=== PATIENT | male | born 1965 | race Caucasian/White ===

== ENCOUNTER → 2019-04-22 10:05 | Outpatient (BNVA) | payer MEDICARE, MEDICAID, SELFPAY | PROVIDERS: PCP Family Medicine; Visit Provider Family Medicine | DX: M10.9 Gout, unspecified (principal); E78.2 Mixed hyperlipidemia; I10 Essential (primary) hypertension | CPT/HCPCS: 80053; 80061; 84550; 85025 ==

== ENCOUNTER → 2019-10-21 12:11 | Outpatient (BNVA) | payer MEDICARE, MEDICAID, SELFPAY | PROVIDERS: PCP Family Medicine; Visit Provider Family Medicine | DX: E78.2 Mixed hyperlipidemia (principal); I10 Essential (primary) hypertension; M10.9 Gout, unspecified; Z86.711 Personal history of pulmonary embolism | CPT/HCPCS: 80053; 80061; 85025 ==

== ENCOUNTER → 2020-04-20 11:20 | Outpatient (BNVA) | payer MEDICARE, MEDICAID, SELFPAY | PROVIDERS: PCP Family Medicine; Visit Provider Family Medicine | DX: I10 Essential (primary) hypertension (principal); E87.5 Hyperkalemia; E78.2 Mixed hyperlipidemia; M1A.09X0 Idiopathic chronic gout, multiple sites, without tophus (tophi); Z68.34 Body mass index [BMI] 34.0-34.9, adult | CPT/HCPCS: 80053; 80061; 84443; 84550; 84560; 85025 ==

== ENCOUNTER → 2020-07-29 12:22 | Outpatient (BNVA) | payer MEDICARE, MEDICAID, SELFPAY | PROVIDERS: PCP Family Medicine; Visit Provider Family Medicine | DX: E78.2 Mixed hyperlipidemia (principal); I10 Essential (primary) hypertension; M1A.09X0 Idiopathic chronic gout, multiple sites, without tophus (tophi); Z86.711 Personal history of pulmonary embolism; Z68.34 Body mass index [BMI] 34.0-34.9, adult | CPT/HCPCS: 80053; 80061; 84443; 84550; 85025 ==

== ENCOUNTER → 2020-10-28 00:01 | Outpatient (BNVA) | payer MEDICARE, MEDICAID, SELFPAY | PROVIDERS: PCP Family Medicine; Visit Provider Family Medicine | DX: I10 Essential (primary) hypertension (principal); M1A.09X0 Idiopathic chronic gout, multiple sites, without tophus (tophi); E78.2 Mixed hyperlipidemia; Z86.711 Personal history of pulmonary embolism | CPT/HCPCS: 80053; 80061; 84443; 84550; 85025 ==

== ENCOUNTER → 2021-07-22 10:21 | Outpatient (BNVA) | payer MEDICARE, MEDICAID, SELFPAY | PROVIDERS: PCP Family Medicine; Visit Provider Family Medicine | DX: E78.2 Mixed hyperlipidemia (principal); I10 Essential (primary) hypertension; Z12.5 Encounter for screening for malignant neoplasm of prostate; M1A.09X0 Idiopathic chronic gout, multiple sites, without tophus (tophi); Z86.711 Personal history of pulmonary embolism | CPT/HCPCS: 80053; 80061; 84550; 85025; G0103 ==

== ENCOUNTER 2021-08-24 09:49 | Emergency (ER) | payer MEDICARE, MEDICAID, SELFPAY ==
[2021-08-24 10:22] VITALS: BP 152/83; PULSE 57; RESP 15; TEMP 36.6; O2SAT 98; BMI 34.0
[2021-08-24 11:08] LABS: Basophils % 0.2 %; Eosinophils % 0.4 %; Hematocrit 47.8 % (42.0-52.0); Hemoglobin 16.1 g/dL (11.7-16.6); Lymphocytes # 0.9 10^3/uL (0.8-4.8); Lymphocytes % 8.8 %; Mean Corpuscular HGB Conc 33.7 g/dL (30.0-36.0); Mean Corpuscular Hemoglobin 30.3 pg (28.0-34.0); Mean Corpuscular Volume 89.8 fl (80-94); Mean Platelet Volume 12.2 fL (7.4-10.4); Monocytes # 0.7 10^3/uL (0.2-0.9); Monocytes % 6.5 %; Neutrophils % 83.5 %; Nucleated Red Blood Cells % 0 %; Platelet Count 190 10^3/cmm (130-400); Red Blood Count 5.32 10^6/uL (4.1-5.3); Red Cell Distribution Width 13.3 % (12.1-15.1); White Blood Count 10.5 10^3/uL (4.0-10.0)
--- NOTE | 2021-08-24 11:25 | W.ED.ABDPA2 ---
HPI - Abdominal Pain General: Chief Complaint: Abdominal Pain Stated Complaint: abd pain Time Seen by Provider: 08/24/21 09:52 Source: patient Mode of arrival: ambulatory Limitations: no limitations History of Present Illness: Patient is a 55-year-old male who presents to ED today with complaint of left lower abdominal pain that began at roughly 2 AM this morning after he awoke from sleep. Patient states the pain was initially very sharp. It has improved greatly upon his arrival to the ED. He states he has had a history of kidney stones that have felt similar previously. He has noticed darker than normal urine but he does not complain of any dysuria or trouble starting a stream. He is not having any flank pain. He is having normal bowel movements. No nausea or vomiting. No fevers. MD elicited complaint: abdominal pain Onset (ago): hour(s) Pain Consistency: constant Location: LLQ Severity: mild Quality: sharp and other (improved upon arrival to ED) Migration to: no migration Exacerbating factors: nothing Relieving factors: nothing Associated Symptoms: Reports no associated symptoms; Denies change in bowel habits, chills, constipation, diarrhea, dysuria, fever(s), nausea and vomiting Review of Systems Const: Denies: fever(s), chills, body aches, fatigue or malaise Card: Denies: chest pain Resp: Denies: dyspnea GI: Reports: abdominal pain; Denies: nausea, vomiting, diarrhea, constipation or change in bowel habits : Reports: other (dark urine); Denies: flank pain, difficulty urinating, dysuria, urinary hesitancy, difficulty starting urination, change in urine stream or urinary incontinence Musc: Denies: neck pain, back pain, extremity pain or joint pain Skin/Breast: Denies: rash Neuro: Denies: headache(s), numbness in extremities, weakness in extremities, sensory changes or dizziness PFSH ED PFSH: Medical History Anticoagulated Arthritis of right glenohumeral joint Encounter for counseling for care management of patient with chronic conditions and complex health needs using nurse-based model Essential (primary) hypertension Gout, unspecified Hx pulmonary embolism Hyperkalemia Mixed hyperlipidemia Surgical History Hx of lymph node biopsy Family History Family/Other CAD (coronary artery disease) Diabetes Social History Smoking and tobacco status: never smoked Alcohol intake: unknown Current occupational status: disabled Current gender identity: Male Physical Exam Const: COMMON NORMALS: no acute distress, patient oriented x3, no limitations and alert GENERAL APPEARANCE: cooperative ORIENTATION/CONSCIOUSNESS: Yes awake, Yes oriented to person, Yes oriented to place and Yes oriented to time Resp: COMMON NORMALS: normal respiratory effort and clear to auscultation bilaterally AUSCULTATION: clear to auscultation bilaterally Cardio: COMMON NORMALS: regular rate and regular rhythm RATE: regular rate RHYTHM: regular rhythm GI: COMMON NORMALS: Normal to inspection, nondistended, normoactive bowel sounds present, Soft to palpation, No hepatosplenomegaly present and no masses INSPECTION: Yes normal to inspection AUSCULTATION: Yes normoactive bowel sounds PALPATION: Yes Soft to palpation, Yes Tenderness to palpation present (GI) (L lower abdomen), No Guarding due to palpation present (GI), No Rigid due to palpation and Yes No hepatosplenomegaly present : COMMON NORMALS: Yes no CVA tenderness BLADDER/KIDNEY EXAM: Yes no CVA tenderness Back/Pelvis: COMMON NORMALS: no CVA tenderness, thoracic and lumbar spine normal to inspection, no thoracic nor lumbar tenderness and thoraco-lumbar ROM normal Extremity: COMMON NORMALS: normal to inspection GENERAL: Yes normal exam except as noted Neuro: ZANDRA COMA SCALE: document GCS findings [place] coma scale eye opening: Spontaneous [place] coma scale verbal response: Orientated Zandra coma scale motor response: Obey commands [place] coma scale total score: 15 COMMON NORMALS: patient oriented x3, moves all extremities, no focal motor deficits and no sensory deficits noted SENSORIUM/ORIENTATION: Yes alert, Yes oriented to person, Yes oriented to place and Yes oriented to time Skin: COMMON NORMALS: no rashes or lesions noted GENERAL SKIN EXAM: no rashes or lesions noted Course Vital Signs: Vital signs: Vital Signs Temperature 98.1 F 08/24/21 13:16 Pulse Rate 62 08/24/21 13:16 Respiratory Rate 16 08/24/21 13:16 Blood Pressure 141/82 08/24/21 13:16 Pulse Oximetry 98 08/24/21 13:16 [facility] - Abdominal Pain Medical Decision Making Patient's vital signs are normal. His pain had improved upon arrival to the ED. Essentially is a 55-year-old male who woke up with left-sided abdominal pains-fairly acute onset that felt similar to previous kidney and ureter stones. His blood work is unremarkable. He does have hematuria and a CT imaging obtained and does show a 4 mm left ureter calculus. He has additional bilateral numerous nonobstructing renal calculi. Radiologist commented on left inguinal hernia. Patient is not having any pain to his inguinal region and there is no mass or bulge noted here. He is having normal bowel movements and passing flatulence. Clinically his left ureter stone fits his symptomology and will be treated with flomax, pain/nausea meds, urine strainer, and follow-up with urology. Return to ED precautions given regarding the stone as well as precautions regarding inguinal hernias. Lab Data : 08/24/21 11:00 08/24/21 11:00 Labs/Radiology: Radiology Impressions Abdomen/Pelvis CT 08/24/21 11:35 IMPRESSION: 1. Mild LEFT hydroureteronephrosis secondary to 4 mm calcification in the proximal LEFT ureter. 2. Additional bilateral numerous nonobstructing renal calcifications. 3. Normal appendix. 4. Distal colon diverticulosis without acute diverticulitis. 5. Bilateral patent inguinal canals contain fat. There is also a loop of distal colon extending into the proximal LEFT patent inguinal canal. No incarceration at this time. Laboratory Results WBC 10.5 10^3/uL (4.0-10.0) H 08/24/21 11:00 RBC 5.32 10^6/uL (4.1-5.3) H 08/24/21 11:00 Hgb 16.1 g/dL (11.7-16.6) 08/24/21 11:00 Hct 47.8 % (42.0-52.0) 08/24/21 11:00 MCV 89.8 fl (80-94) 08/24/21 11:00 MCH 30.3 pg (28.0-34.0) 08/24/21 11:00 MCHC 33.7 g/dL (30.0-36.0) 08/24/21 11:00 RDW 13.3 % (12.1-15.1) 08/24/21 11:00 Plt Count 190 10^3/cmm (130-400) 08/24/21 11:00 MPV 12.2 fL (7.4-10.4) H 08/24/21 11:00 Neut % (Auto) 83.5 % 08/24/21 11:00 Lymph % (Auto) 8.8 % 08/24/21 11:00 [place] % (Auto) 6.5 % 08/24/21 11:00 Eos % (Auto) 0.4 % 08/24/21 11:00 Baso % (Auto) 0.2 % 08/24/21 11:00 Neut # (Auto) 8.80 10^3/uL (1.8-7.7) H 08/24/21 11:00 Lymph # (Auto) 0.9 10^3/uL (0.8-4.8) 08/24/21 11:00 [place] # (Auto) 0.7 10^3/uL (0.2-0.9) 08/24/21 11:00 Eos # (Auto) 0.0 10^3/uL (0.0-0.8) 08/24/21 11:00 Baso # (Auto) 0.0 10^3/uL (0.0-0.1) 08/24/21 11:00 Nucleated RBC % (auto) 0 % 08/24/21 11:00 Nucleated RBCs # 0.0 /100WBC 08/24/21 11:00 Sodium 139 mmol/L (136-145) 08/24/21 11:00 Potassium 5.1 mmol/L (3.5-5.1) 08/24/21 11:00 Chloride 102 mmol/L (98-107) 08/24/21 11:00 Carbon Dioxide 26 mmol/L (22-29) 08/24/21 11:00 Anion Gap 16.1 (5-19) 08/24/21 11:00 BUN 18 mg/dL (6-20) 08/24/21 11:00 Creatinine 1.0 mg/dL (0.7-1.2) 08/24/21 11:00 GFR Calculation 77.0 mL/min (90-130) L 08/24/21 11:00 Glucose 138 mg/dL (65-115) H 08/24/21 11:00 Calculated Osmolality 292 mOsm/kg (285-295) 08/24/21 11:00 Calcium 9.5 mg/dL (8.5-10.5) 08/24/21 11:00 Total Bilirubin 0.3 mg/dL (0.15-1.2) 08/24/21 11:00 AST 30 U/L (0-40) 08/24/21 11:00 ALT 36 U/L (0-41) 08/24/21 11:00 Alkaline Phosphatase 47 IU/L (40-130) 08/24/21 11:00 Total Protein 7.1 g/dL (6.6-8.7) 08/24/21 11:00 Albumin 4.4 g/dL (3.5-5.2) 08/24/21 11:00 Globulin 2.7 g/dL (1.3-4.6) 08/24/21 11:00 Lipase 27 U/L (13-60) 08/24/21 11:00 Urine Color Yellow (Yellow) 08/24/21 11:04 Urine Appearance Clear (CLEAR) 08/24/21 11:04 Urine pH 5 (5-7) 08/24/21 11:04 Ur Specific [place] 1.025 (1.005-1.030) 08/24/21 11:04 Urine Protein Neg (Negative) 08/24/21 11:04 Urine Glucose (UA) Norm (Normal) 08/24/21 11:04 Urine Ketones Negative (Negative) 08/24/21 11:04 Urine Blood 3+ (Negative) H 08/24/21 11:04 Urine Nitrate Negative (Negative) 08/24/21 11:04 Urine Bilirubin Neg (Negative) 08/24/21 11:04 Urine Urobilinogen Norm mg/dL (Negative) 08/24/21 11:04 Ur Leukocyte Esterase Negative (Negative) 08/24/21 11:04 Urine RBC Too numerous to cnt /hpf (0-2) H 08/24/21 11:04 Urine WBC 0-4 /hpf (0-5) H 08/24/21 11:04 Ur Squamous Epith Cells 0-4 /hpf (0-5) H 08/24/21 11:04 Amorphous Sediment Not Reportable 08/24/21 11:04 Urine Bacteria None /hpf (NONE) 08/24/21 11:04 Discharge Plan Discharge Patient Disposition: Home Clinical Impression: Left ureteral stone Condition: Stable Prescriptions: New hydrocodone-acetaminophen 5-325 mg tablet 1 tab PO Q6H PRN (Reason: pain) Qty: 14 0RF Flomax 0.4 mg capsule 0.4 mg PO DAILY Qty: 10 0RF ondansetron 4 mg tablet,disintegrating 4 mg PO Q8H PRN (Reason: nausea and vomiting) Qty: 14 0RF No Action acetaminophen [Tylenol] 325 mg tablet 325 mg PO QID PRN (Reason: Pain) 0RF atorvastatin 20 mg tablet 20 mg PO DAILY Qty: 90 1RF metoprolol tartrate 50 mg tablet 50 mg PO DAILY 0RF allopurinol 300 mg tablet 300 mg PO DAILY 0RF Eliquis 5 mg tablet 5 mg PO BID 0RF Garlique 400 mg Tablet,Delayed Release (Dr/Ec) 400 mg PO DAILY 0RF Discharge Orders: Discharge ED (Routine); Ordered 08/24/21 Ordered By: Jeanie Dacosta Referrals: Harsh Arambula MD [Physician] - Yolanda Honeycutt MD [Primary Care Provider] - Patient Instructions: Ureteral Stones (ED) Activity Restrictions/Additional Instructions: As we discussed case management should contact you shortly to set you up with your follow-up urology appointment. Push fluids (water) as much as possible. You may use the pain and nausea meds as needed. As we discussed strain your urine and bring any stones with you to your follow-up appointment. You may return to the emergency department for worsening or uncontrollable pain, repetitive episodes of vomiting, fevers, inability to urinate, or any other concerns you may have. I hope you begin to feel better soon. Coding Level of Care Code ED Edge Grinder Machine for Usha Fwd Exam Comprehensive
[2021-08-24 11:26] LABS: Alanine Aminotransferase 36 U/L (0-41); Albumin Level 4.4 g/dL (3.5-5.2); Alkaline Phosphatase 47 IU/L (40-130); Blood Urea Nitrogen 18 mg/dL (6-20); Calcium 9.5 mg/dL (8.5-10.5); Carbon Dioxide 26 mmol/L (22-29); Chloride 102 mmol/L (98-107); Globulin 2.7 g/dL (1.3-4.6); Glucose 138 mg/dL (65-115); Lipase 27 U/L (13-60); Osmolality Calculated 292 mOsm/kg (285-295); Sodium 139 mmol/L (136-145); Total Bilirubin 0.3 mg/dL (0.15-1.2); Total Protein 7.1 g/dL (6.6-8.7)
[2021-08-24 11:30] LABS: Anion Gap 16.1 (5-19); Aspartate Amino Transferase 30 U/L (0-40); Potassium 5.1 mmol/L (3.5-5.1)
[2021-08-24 11:30] LABS: Add Urine Microscopic? YES; Bilirubin Urine Neg (Negative); Blood Urine 3+ (Negative); Glucose Urine UA Norm (Normal); Ketones Urine Negative (Negative); Leukocyte Esterase Urine Negative (Negative); Nitrate Urine Negative (Negative); Protein Urine Neg (Negative); RBC Urine TOO NUMEROUS TO CNT /hpf (0-2); Specific Gravity, Urine 1.025 (1.005-1.030); Urine Appearance Clear (CLEAR); Urine Color Yellow (Yellow); Urobilinogen Urine Norm (Negative); pH Urine 5 (5-7)
[2021-08-24 11:31] LABS: Add Urine Culture? Yes; Squamous Epithelial Cell Urine 0-4 /hpf (0-5); WBC Urine 0-4 /hpf (0-5)
--- NOTE | 2021-08-24 11:35 | CT_ITS ---
WS: [id number] CT ABDOMEN AND PELVIS NONCONTRAST HISTORY: LLQ pain; hematuria TECHNIQUE: Imaging performed through the abdomen and pelvis. Coronal and sagittal reformats are submi tted. All CT scans at [facility] use at least one of these dose optimization techniques: auto mated exposure control; mA and/or kV adjustment per patient size (includes targeted exams where dose is matched to clinical indication); or iterative reconstruction. DLP: 1883.5 mGy.cm COMPARISON: None available. Lower thorax: Benign granuloma RIGHT middle lobe. Heart size is normal. Small hiatal hernia. Liver: Hepatic granuloma. Mild variable density within the liver but no mass. No bile duct dilatation . Gallbladder: Normal gallbladder. Pancreas: Normal size and attenuation. Normal pancreatic duct. No pancreatitis or mass. Spleen: Normal. Adrenal glands: Normal. No mass. Right kidney: Normal size kidney. Numerous nonobstructing calcifications in the renal pelvis ranging from 3 mm to 11 mm. No perinephric stranding. No ureteral calcification. Left kidney: Normal size kidney with mild perinephric stranding. There are several nonobstructing layo cifications in the renal pelvis ranging from 2 mm to 8 mm. Mild hydronephrosis and proximal hydrouret er secondary to 4 mm calcification at the L3 level. The ureter distal to this calcification is also m ildly inflamed but no additional calcifications are identified. Aorta: Minimal atherosclerosis aorta. No free fluid, intraperitoneal air or significant lymphadenopathy. GI tract: Normal appendix. Normally distended stomach. No small bowel obstruction. Mild diffuse const ipation throughout the colon. Numerous diverticula in the distal colon. No obstructive pattern. There is a loop of colon extending within the patent LEFT inguinal canal. This loop of descending colon is at the very orifice of the inguinal canal. No obstruction at this time. RIGHT inguinal canal is wade nt containing fat only. Abdominal wall: Negative. No hernia. Pelvis: No free fluid or adenopathy. Well-distended urinary bladder. Osseous structures: Facet joint arthritis in the lower lumbar spine. Sclerotic focus LEFT ilium is pr obably a bone island measuring 5.[address]/CT kidney stone [id number] IMPRESSION: 1. Mild LEFT hydroureteronephrosis secondary to 4 mm calcification in the prox imal LEFT ureter. 2. Additional bilateral numerous nonobstructing renal calcifications. 3. Normal appendix. 4. Distal colon diverticulosis without acute diverticulitis. 5. Bilateral patent inguinal canals contain fat. There is also a loop of dista l colon extending into the proximal LEFT patent inguinal canal. No incarceratio n at this time.
--- NOTE | 2021-08-24 12:09 | PC.PHAR ---
PT STATES HE TALKED TO HIS DOCTOR AND HIS DR SAID HE COULD TAKE GARLIQUE INSTEAD OF FENOFIBRATE.
[2021-08-24 13:16] VITALS: BP 141/82; PULSE 62; RESP 16; TEMP 36.7; O2SAT 98
--- NOTE | 2021-09-02 16:44 | DCPLANNER ---
regional safety manager had message to schedule a follow up appointment for patient with urology. Message was sent to the front office staff at urology, patients information was sent to the front office staff at urology. A follow up appointment was scheduled for 08.26.[address] Arambula. Patient did attend appointment.
== END 2021-08-24 13:21 | disposition home or self-care (01) ==
PROVIDERS: Emergency Provider Physician Assistant; PCP Family Medicine
DX: N20.1 Calculus of ureter (principal); Z79.01 Long term (current) use of anticoagulants; I10 Essential (primary) hypertension; E78.2 Mixed hyperlipidemia; Z86.711 Personal history of pulmonary embolism
CPT/HCPCS: 74176; 80053; 81001; 83690; 85025; 87086; 99283

== ENCOUNTER 2021-08-26 07:56 | Outpatient (CLI) | payer MEDICARE, MEDICAID, SELFPAY ==
--- NOTE | 2021-08-26 08:04 | XR_ITS ---
WS: [id number] XR KUB [id number] REASON FOR EXAM: stone FINDINGS: Multiple intrarenal calculi bilaterally congruent with the CT scan of 08/24/2021. Calculus adjacent to the left transverse process of L3 congruent with the finding of a proximal left ureteral calculus on the CT scan of 08/24/2021. No other significant abdominal findings are noted. XR/XR KUB [id number] IMPRESSION: Urinary tract calculi as above congruent with the previous CT scan.
== END 2021-08-26 07:57 | disposition home or self-care (01) ==
PROVIDERS: PCP Family Medicine; Visit Provider Urology
DX: N20.1 Calculus of ureter (principal); N20.0 Calculus of kidney
CPT/HCPCS: 74018; 81003; 99203

== ENCOUNTER 2021-09-09 08:59 | Outpatient (CLI) | payer MEDICARE, MEDICAID, SELFPAY ==
--- NOTE | 2021-09-09 09:45 | XR_ITS ---
WS: [id number] KUB, AP view, 09/09/2021 Clinical Data: BILATERAL RENAL STONES Comparison: KUB, 08/26/2021 Findings: No abnormal intraabdominal masses are seen. There is no dilatated small bowel or evidence of obstruct ion. There are calcifications overlying both kidneys. Bowel gas obscures detail over both kidneys. XR/XR KUB [id number] Impression: Bilateral renal calculi.
== END 2021-09-09 09:00 | disposition home or self-care (01) ==
PROVIDERS: PCP Family Medicine; Visit Provider Urology
DX: N20.2 Calculus of kidney with calculus of ureter (principal)
CPT/HCPCS: 74018; 81003; 99213

== ENCOUNTER → 2021-10-08 07:39 | Outpatient (BNVA) | payer MEDICARE, MEDICAID, SELFPAY | PROVIDERS: PCP Family Medicine; Visit Provider Urology | DX: N20.1 Calculus of ureter (principal); N20.0 Calculus of kidney | CPT/HCPCS: 74018; 81003; 99213 ==

== ENCOUNTER 2021-10-22 08:19 | Outpatient (CLI) | payer MEDICARE, MEDICAID, SELFPAY ==
--- NOTE | 2021-10-22 08:30 | XR_ITS ---
WS: [id number] KUB, AP view, 10/22/2021 Clinical Data: STONES Comparison: KUB, 10/08/2021 Findings: No abnormal intraabdominal masses are seen. There is no dilatated small bowel or evidence of obstruct ion. There are bilateral calcifications overlying both kidneys unchanged. There are phleboliths in the magaly e pelvis. There is a moderate amount of fecal material in the ascending and transverse colon. XR/XR KUB [id number] Impression: No change in bilateral renal calculi.
== END 2021-10-22 08:20 | disposition home or self-care (01) ==
LOC: RAD 08:23
PROVIDERS: PCP Family Medicine; Visit Provider Urology
DX: N20.0 Calculus of kidney (principal)
CPT/HCPCS: 74018; 81003; 99213

== ENCOUNTER 2022-01-13 06:53 | Outpatient (CLI) | payer MEDICARE, MEDICAID, SELFPAY ==
--- NOTE | 2022-01-13 08:00 | US_ITS ---
WS: [id number] ULTRASOUND SOFT TISSUES LEFT inguinal canal. HISTORY: K40.90 - Unilateral inguinal hernia, without obstruction ... COMPARISON: CT 08/24/2021 TECHNIQUE: 2-D and color Doppler imaging is submitted. Peristalsing loops of GI tract extends along the LEFT inguinal canal to abut the superior LEFT testic le. Normal peristalsis. No ischemic changes are identified. Hernia was also identified on the prior C T of 08/16/2021 but the extent of the GI tract extending along the inguinal canal has increased. There is no edema identified. US/US soft tissue/extremity [id number] IMPRESSION: 1. LEFT inguinal canal hernia containing peristalsing loop of GI tract. No isc hemic changes at this time.
== END 2022-01-13 06:54 | disposition home or self-care (01) ==
LOC: RAD 06:54
PROVIDERS: PCP Family Medicine; Visit Provider Family Medicine
DX: K40.90 Unilateral inguinal hernia, without obstruction or gangrene, not specified as recurrent (principal)
CPT/HCPCS: 76882

== ENCOUNTER → 2022-08-29 15:17 | Outpatient (BNVA) | payer MEDICARE, MEDICAID, SELFPAY | PROVIDERS: PCP Family Medicine; Visit Provider Family Medicine | DX: E78.2 Mixed hyperlipidemia (principal); I10 Essential (primary) hypertension; M10.9 Gout, unspecified; M1A.09X0 Idiopathic chronic gout, multiple sites, without tophus (tophi); G56.02 Carpal tunnel syndrome, left upper limb | CPT/HCPCS: 80053; 80061; 84443; 84550; 85025 ==

== ENCOUNTER → 2023-07-04 17:26 | Outpatient (BNVA) | payer MEDICARE, MEDICAID, SELFPAY | PROVIDERS: PCP Family Medicine; Visit Provider Family Medicine | DX: I10 Essential (primary) hypertension (principal); E78.2 Mixed hyperlipidemia; M1A.09X0 Idiopathic chronic gout, multiple sites, without tophus (tophi); G56.02 Carpal tunnel syndrome, left upper limb | CPT/HCPCS: 80053; 80061; 84443; 84550; 85025 ==

== ENCOUNTER → 2024-01-29 11:41 | Outpatient (BNVA) | payer MEDICARE, MEDICAID, SELFPAY | PROVIDERS: PCP Nurse Practitioner Family; Visit Provider Nurse Practitioner Family | DX: R13.10 Dysphagia, unspecified (principal); I10 Essential (primary) hypertension; Z12.5 Encounter for screening for malignant neoplasm of prostate | CPT/HCPCS: 80053; 80061; 84443; 84550; 85025; G0103 ==

== ENCOUNTER → 2024-02-26 08:05 | Outpatient (BNVA) | payer MEDICARE, MEDICAID, SELFPAY | PROVIDERS: PCP Nurse Practitioner Family; Visit Provider Surgery | DX: R13.10 Dysphagia, unspecified (principal); R03.0 Elevated blood-pressure reading, without diagnosis of hypertension; K21.9 Gastro-esophageal reflux disease without esophagitis; R10.13 Epigastric pain | CPT/HCPCS: 99204 ==

== ENCOUNTER 2024-03-15 08:31 | Outpatient (CLI) | payer MEDICARE, MEDICAID, SELFPAY ==
--- NOTE | 2024-03-15 09:15 | US_ITS ---
WS: [id number] RIGHT UPPER QUADRANT ULTRASOUND HISTORY: epigastric pain COMPARISON: None available. Liver: 16.8 cm in length. Coarse diffuse echotexture throughout the liver. No intrahepatic duct dilat ation. Portal Vein: Normal hepatopetal flow with monophasic waveform. Gallbladder: Nonshadowing and nonmobile focus in the gallbladder lumen measures 6 mm. This is probabl y a hyperplastic gallbladder polyp. No wall thickening or pericholecystic fluid. Additional increased echogenicity in the neck of the gallbladder is poorly visualized. Potentially this could represent s ludge or stone versus artifact. CBD: 0.4 cm Pancreas: Normal size and echogenicity. Right kidney: 9.8 cm in length. Normal size and echogenicity. No hydronephrosis or mass. Aorta and IVC: Unremarkable abdominal aorta and IVC. No ascites. US/US gall bladder [id number] IMPRESSION: 1. Technically limited RIGHT upper quadrant evaluation. 2. Hyperplastic gallbladder polyp measures 6 mm. There may be additional stone s or sludge in the neck of the gallbladder which is poorly visualized. This may be also artifact and related to body habitus. If gallbladder is not surgically removed consider follow-up in 3 months by ultrasound to better evaluate the ne ck of the gallbladder.
== END 2024-03-15 08:32 | disposition home or self-care (01) ==
LOC: RAD 08:32
PROVIDERS: PCP Nurse Practitioner Family; Visit Provider Surgery
DX: R10.13 Epigastric pain (principal); R93.2 Abnormal findings on diagnostic imaging of liver and biliary tract; R93.3 Abnormal findings on diagnostic imaging of other parts of digestive tract
CPT/HCPCS: 76705

== ENCOUNTER → 2024-03-20 09:30 | Day surgery (SDC) | payer MEDICARE, MEDICAID, SELFPAY ==
--- NOTE | 2024-03-20 10:00 | NM_ITS ---
WS: [id number] NUCLEAR MEDICINE HIDA SCAN WITH GALLBLADDER EJECTION FRACTION HISTORY: epigastric pain COMPARISON: Gallbladder ultrasound 03/15/2024 TECHNIQUE: The patient was intravenously injected with 8.2 mCi of TC99m Mebrofenin. Immediate imaging over the right upper quadrant was followed by 5 minute image and additional images for a total of 60 minutes. Normal uptake of radiotracer throughout the liver. Activity identified in the gallbladder at 15 minutes and well distended by 60 minutes. Activity in the proximal small bowel was seen by 20 minutes. Good washout of the radiotracer from the liver by 60 minutes. The patient then drank 8 ounces of Ensure Plus. Ejection fraction at 60 minutes was 47%. Normal GB ej ection fraction is 35-75%. Post fatty meal symptoms: None. NM/NM hepatobiliary w phar* [id number] IMPRESSION: 1. Normal HIDA scan. 2. Normal gallbladder ejection fraction.
== END ==
LOC: RAD 09:30
PROVIDERS: PCP Nurse Practitioner Family; Visit Provider Surgery
DX: R10.13 Epigastric pain (principal)
CPT/HCPCS: 78227; A9537

== ENCOUNTER → 2024-03-22 08:42 | Outpatient (BNVA) | payer MEDICARE, MEDICAID, SELFPAY | PROVIDERS: PCP Nurse Practitioner Family; Visit Provider Student in an Organized Health Care Education/Training Program | DX: R03.0 Elevated blood-pressure reading, without diagnosis of hypertension (principal); R12 Heartburn | CPT/HCPCS: 99204 ==

== ENCOUNTER 2024-04-15 09:15 | Day surgery (SDC) | payer MEDICARE, MEDICAID, SELFPAY ==
--- NOTE | 2024-04-14 12:35 | ANES.PREANE2 ---
Pre-Anesthetic Assessment Height/Weight: Height 5 ft 8 in Preop Diagnosis: GERD Operation Date: 04/15/24 10:45 Proposed Procedures p EGD [id number], R12(Not Applicable) - Bora Coombs MD Was Beta Dariana taken within 24 hours: Yes Was Clonidine taken within 24 hours: N/A Social No alcohol and No tobacco Exam alert, oriented x 3, clear to auscultation bilaterally and regular rate & rhythm Airway Submandibular: within normal limits Cervical ROM: within normal limits Mallampati: Class III Dentition: full Anesthetic Plan ASA status: 3 Anesthesia: MAC Other: No prior issues with anesthesia NPO since yesterday evening History of hypertension on amlodipine and metoprolol GERD on Protonix Patient has a history of PE, on chronic Eliquis. Last taken 04/11/2024 Labs from January reviewed acceptable for procedure Plan for MAC anesthetic Medications/Allergies Home Medications ?Medication ?Instructions ?Recorded ?Confirmed ?Last Taken ?Type acetaminophen 325 mg tablet 325 mg PO QID PRN Pain 04/20/20 04/11/24 03/18/24 History (Tylenol) garlic 400 mg tablet,delayed 400 mg PO DAILY 08/24/21 04/11/24 04/11/24 History release amlodipine 5 mg tablet 5 mg PO DAILY #90 tabs 01/29/24 04/11/24 04/11/24 Rx apixaban 5 mg tablet (Eliquis) 5 mg PO BID #180 tabs 01/29/24 04/11/24 04/11/24 Rx pantoprazole 40 mg tablet,delayed 40 mg PO BID 6 weeks #84 tabs 02/26/24 04/11/24 04/11/24 Rx release (Protonix) ezetimibe 10 mg tablet (Zetia) 10 mg PO DAILY #90 tabs 03/01/24 04/11/24 03/18/24 Rx allopurinol 200 mg tablet 200 mg PO DAILY 03/18/24 04/11/24 04/10/24 History metoprolol tartrate 50 mg tablet 50 mg PO BID 03/18/24 04/11/24 04/15/24 07:00 History Allergies Allergy/AdvReac Type Severity Reaction Status Date / Time No Known Allergies Allergy Verified 04/15/24 09:42 [facility] Anesthesia Medical History Left ureteral calculus Bilateral renal stones Mixed hyperlipidemia Essential (primary) hypertension Hyperkalemia Arthritis of right glenohumeral joint Gout, unspecified Hx pulmonary embolism Anticoagulated Encounter for counseling for care management of patient with chronic conditions and complex health needs using nurse-based model Surgical History Hx of lymph node biopsy Family History Family/Other CAD (coronary artery disease) Diabetes Mother Healthy adult Father Healthy adult Social History Smoking and tobacco/nicotine status: never used tobacco/nicotine Alcohol intake: never Substance/Drug Use: never Household members: family Marital status: Single Current occupational status: disabled Current gender identity: Male Data Anesthesia Cardiac Studies: No Data to Display
[2024-04-15 09:51] VITALS: BP 165/92; PULSE 54; RESP 18; TEMP 36.4; O2SAT 95; BMI 38.0
--- NOTE | 2024-04-15 10:01 | W.PM.OPSUD ---
Surgery/Procedure H&P Update DATE OF PROCEDURE: April 15, 2024 DATE H&P PERFORMED: 03/22/24 H&P UPDATE INFORMATION: I have reviewed H&P completed within last 30 days, I have examined patient prior to procedure and No changes to prior documentation PLANNED PROCEDURE: Operation Date: 04/15/24 10:45 Proposed Procedures p EGD [id number], R12(Not Applicable) - Bora Coombs MD
[2024-04-15 12:51] VITALS: BP 103/67; PULSE 60; RESP 16; TEMP 36.4; O2SAT 95
[2024-04-15 13:09] VITALS: BP 140/73; PULSE 56; RESP 18; O2SAT 100
[2024-04-15] MEDS: sodium chloride 0.9% 500 ML 15 ML IV (13:15)
== END 2024-04-15 13:15 | disposition home or self-care (01) ==
PROVIDERS: PCP Nurse Practitioner Family; Visit Provider Student in an Organized Health Care Education/Training Program
PROC: 0DJ08ZZ Inspection of Upper Intestinal Tract, Via Natural or Artificial Opening Endoscopic (ICD-10-PCS; principal; 2024-04-15 10:45)
DX: K21.9 Gastro-esophageal reflux disease without esophagitis (principal); Z79.899 Other long term (current) drug therapy; Z79.01 Long term (current) use of anticoagulants; I10 Essential (primary) hypertension; Z86.711 Personal history of pulmonary embolism; E78.2 Mixed hyperlipidemia; M10.9 Gout, unspecified
CPT/HCPCS: 43239; 88305; J2704; J7040

== ENCOUNTER 2024-05-04 07:14 | Emergency (ER) | payer MEDICARE, MEDICAID, SELFPAY ==
[2024-05-04] VITALS (11 sets, daily range): BP systolic 122–159; BP diastolic 72–89; PULSE 55–67; RESP 9–17; TEMP 36.6; O2SAT 93–98; BMI 38.0
--- NOTE | 2024-05-04 07:19 | ECG_ITS ---
[facility] Date: 2024-05-04 Pat Name: Emmy Correia Department: Room: Gender: Male Business Sales Consultant: : 1965 Requested By: Michael Covington Order Number: [id number] Kian MD: Silvano Peña M.D. Measurements Intervals [place] Rate: 64 P: 50 [place]: 162 QRS: 36 QRSD: 106 T: 61 QT: 388 QTc: 402 Interpretive Statements SINUS RHYTHM No previous ECG available for comparison Electronically Signed On 05-04-2024 17:58:24 INVAS TECH by Silvano Peña M.D. [email or web address] [id number]
--- NOTE | 2024-05-04 07:23 | XRR_ITS ---
PROCEDURE INFORMATION: Exam: XR Chest Exam date and time: 05/04/2024 7:30 AM Age: 58 years old Clinical indication: Cough and dyspnea; Additional info: Dyspnea/cough TECHNIQUE: Imaging protocol: Radiologic exam of the chest. Views: 1 view. Total images: 1 COMPARISON: CR XR KUB [id number] 10/22/2021 8:31 AM FINDINGS: Lungs: Unremarkable. No consolidation. Pleural spaces: Unremarkable. No pleural effusion. No pneumothorax. Heart/Mediastinum: Unremarkable. No cardiomegaly. Bones/joints: Unremarkable. XR/XR chest 1V portable [id number] IMPRESSION: No acute findings.
[2024-05-04 07:51] LABS: Basophils % 0.5 %; Eosinophils # 0.6 10^3/uL (0.0-0.8); Eosinophils % 7.7 %; Hematocrit 50.5 % (37-53); Lymphocytes # 1.4 10^3/uL (0.8-4.8); Lymphocytes % 18.9 %; Mean Corpuscular HGB Conc 33.3 g/dL (30-55); Mean Corpuscular Hemoglobin 29.7 pg (27-33); Mean Corpuscular Volume 89.4 fl (82-101); Monocytes # 0.8 10^3/uL (0.2-0.9); Monocytes % 10.4 %; Neutrophils % 62.1 %; Nucleated Red Blood Cells % 0 %; Platelet Count 223 10^3/cmm (157-399); Red Blood Count 5.65 10^6/uL (3.85-5.65); Red Cell Distribution Width 12.7 % (12.1-15.1); White Blood Count 7.57 10^3/uL (3.29-11.43)
--- NOTE | 2024-05-04 08:03 | ED_ITS ---
HPI - Chest Pain 2 General: Chief Complaint: Chest Pain Stated Complaint: chest pain Time Seen by Provider: 05/04/24 07:25 History of Present Illness: 58-year-old male who [place] [facility] [place] with complaints of chest and abdominal pain. This been ongoing for quite some time for him he has had extensive outpatient workup including EGD gallbladder ultrasound and HIDA scan all of which have been negative. He has a history of PEs he is on apixaban he has been taking that regularly he is not having any shortness of breath now. Pain is worse when he laughs or coughs send the lower chest upper epigastric area. He has no known history of coronary artery disease he is on pantoprazole 40 mg twice daily. In addition to this he is on antihypertensive he states he has been taking all of his medications. He has noticed that he gets bad heartburn and states that last night he had pretty significant heartburn that seems to improved a little bit this morning he denies any medic easy melena hematemesis coffee-ground emesis. Recent EGD did not show any ulcerations. He is able to swallow liquids without difficulty at the time he is seen there is no evidence of esophageal obstruction. Associated symptoms: Deny abdominal pain, dyspnea or fever(s) Related Data Home Medications ?Medication ?Instructions ?Recorded ?Confirmed acetaminophen 325 mg tablet 325 mg PO QID PRN Pain 05/04/24 (Tylenol) metoprolol tartrate 50 mg tablet 50 mg PO BID 03/18/24 05/04/24 allopurinol 300 mg tablet 300 mg PO DAILY 05/04/2410/21 colchicine 0.6 mg tablet 0.6 mg PO DAILY PRN gout 10/2105/04/24 garlic 400 mg tablet 400 mg PO DAILY 05/04/2410/21 Previous Rx's ?Medication ?Instructions ?Recorded amlodipine 5 mg tablet 5 mg PO DAILY #90 tabs 01/28 apixaban 5 mg tablet (Eliquis) 5 mg PO BID #180 tabs 1 03/31/23 Held on 04/15/24. Instructions: Resume on 04/16/24. pantoprazole 40 mg tablet,delayed 40 mg PO BID 6 weeks #84 tabs 02/26/24 release (Protonix) ezetimibe 10 mg tablet (Zetia) 10 mg PO DAILY #90 tabs 03/01/24 aspirin 81 mg tablet,delayed 81 mg PO DAILY #30 tabs 0 05/04/24 release Allergies Allergy/AdvReac Type Severity Reaction Status Date / Time No Known Allergies Allergy Verified 04/15/24 09:42 Review of Systems 2 Const: Denies: fever(s) or chills Card: Denies: chest pain Resp: Denies: dyspnea GI: Denies: abdominal pain : Denies: dysuria, urinary frequency or urinary urgency Musc: Denies: neck pain or back pain Skin/Breast: Denies: rash PFSH ED 2 PFSH: Medical History Left ureteral calculus Bilateral renal stones Mixed hyperlipidemia Essential (primary) hypertension Hyperkalemia Arthritis of right glenohumeral joint Gout, unspecified Hx pulmonary embolism Anticoagulated Encounter for counseling for care management of patient with chronic conditions and complex health needs using nurse-based model Surgical History Hx of lymph node biopsy Family History Family/Other CAD (coronary artery disease) Diabetes Mother Healthy adult Father Healthy adult Social History Smoking and tobacco/nicotine status: never used tobacco/nicotine Alcohol intake: never Substance/Drug Use: never Household members: family Marital status: Single Current occupational status: disabled Current gender identity: Male Physical Exam 2 Const: COMMON NORMALS: no acute distress GENERAL APPEARANCE: cooperative and comfortable ORIENTATION/CONSCIOUSNESS: Yes awake, Yes oriented to person, Yes oriented to place and Yes oriented to time HENMT: COMMON NORMALS: normocephalic, atraumatic and hearing grossly normal bilaterally HEAD & SCALP: normocephalic and atraumatic Resp: COMMON NORMALS: normal respiratory effort, No retractions, No use of accessory muscles and clear to auscultation bilaterally AUSCULTATION: clear to auscultation bilaterally Cardio: COMMON NORMALS: regular rate, regular rhythm and No murmurs present (Cardio) RATE: regular rate RHYTHM: regular rhythm GI: COMMON NORMALS: Soft to palpation and No hepatosplenomegaly present A USCULTATION: Yes normoactive bowel sounds PALPATION: Yes Soft to palpation, No Tenderness to palpation present (GI), No Guarding due to palpation present (GI) and Yes No hepatosplenomegaly present Extremity: COMMON NORMALS: normal to inspection, capillary refill normal, no clubbing, cyanosis or edema, no calf tenderness and no pedal edema Neuro: SENSORIUM/ORIENTATION: Yes oriented to person, Yes oriented to place and Yes oriented to time Skin: COMMON NORMALS: no rashes or lesions noted GENERAL SKIN EXAM: no rashes or lesions noted Course 2 Vital Signs: Vital signs: Vital Signs Temperature 97.8 F 05/04/24 07:22 Pulse Rate 59 L 05/04/24 10:33 Respiratory Rate 10 L 05/04/24 10:00 Blood Pressure 146/83 05/04/24 10:33 Pulse Oximetry 97 05/04/24 10:33 Oxygen Delivery Me thod Room Air 05/04/24 07:22 MDM - Chest Pain Medical Decision Making EKG and cardiac enzymes negative. I suspect some of this is GI related he is already on pantoprazole 40 mg twice a day continue this follow-up with his primary care doctor will set him up for an outpatient Catia and sestamibi stress test return if he has further problems. He has already had further workup for the symptoms than what we are generally able to provide in the ER including the HIDA scan and endoscopy. Medical Records I reviewed the patient's medical records. Lab Data I reviewed the patient's lab results. 05/04/24 07:38 05/04/24 07:38 Radiology Impressions Chest X-Ray 05/04/24 07:23 IMPRESSION: No acute findings. Laboratory Results WBC 7.57 10^3/uL (3.29-11.43) 05/04/24 07:38 RBC 5.65 10^6/uL (3.85-5.65) 05/04/24 07:38 Hgb 16.80 g/dL (11.27-16.99) 05/04/24 07:38 Hct 50.5 % (37-53) 05/04/24 07:38 MCV 89.4 fl (82-101) 05/04/24 07:38 MCH 29.7 pg (27-33) 05/04/24 07:38 MCHC 33.3 g/dL (30-55) 05/04/24 07:38 RDW 12.7 % (12.1-15.1) 05/04/24 07:38 Plt Count 223 10^3/cmm (157-399) 05/04/24 07:38 MPV 12.0 fL (7.4-10.4) H 05/04/24 07:38 Neut % (Auto) 62.1 % 05/04/24 07:38 Lymph % (Auto) 18.9 % 05/04/24 07:38 [place] % (Auto) 10.4 % 05/04/24 07:38 Eos % (Auto) 7.7 % 05/04/24 07:38 Baso % (Auto) 0.5 % 05/04/24 07:38 Neut # (Auto) 4.70 10^3/uL (1.8-7.7) 05/04/24 07:38 Lymph # (Auto) 1.4 10^3/uL (0.8-4.8) 05/04/24 07:38 [place] # (Auto) 0.8 10^3/uL (0.2-0.9) 05/04/24 07:38 Eos # (Auto) 0.6 10^3/uL (0.0-0.8) 05/04/24 07:38 Baso # (Auto) 0.0 10^3/uL (0.0-0.1) 05/04/24 07:38 Nucleated RBC % (auto) 0 % 05/04/24 07:38 Nucleated RBCs # 0.0 /100WBC 05/04/24 07:38 D-Dimer 0.41 ug/mLFEU (0-0.59) 05/04/24 07:38 Sodium 140 mmol/L (136-145) 05/04/24 07:38 Potassium 4.8 mmol/L (3.5-5.1) 05/04/24 07:38 Chloride 100 mmol/L (98-107) 05/04/24 07:38 Carbon Dioxide 26 mmol/L (22-29) 05/04/24 07:38 Anion Gap 18.8 (5-19) 05/04/24 07:38 BUN 16 mg/dL (8-23) 05/04/24 07:38 Creatinine 1.3 mg/dL (0.7-1.2) H 05/04/24 07:38 GFR Calculation 56.3 mL/min (90-130) L 05/04/24 07:38 Glucose 95 mg/dL (65-115) 05/04/24 07:38 Calculated Osmolality 291 mOsm/kg (285-295) 05/04/24 07:38 Calcium 10.4 mg/dL (8.5-10.5) 05/04/24 07:38 Total Bilirubin 0.5 mg/dL (0.15-1.2) 05/04/24 07:38 AST 28 U/L (0-40) 05/04/24 07:38 ALT 50 U/L (0-41) H 05/04/24 07:38 Alkaline Phosphatase 61 U/L (40-130) 05/04/24 07:38 Troponin T Baseline < 6 ng/L (0-15) 05/04/24 07:38 Troponin T 120 Minute 6.00 ng/L (0-15) 05/04/24 09:30 Delta Troponin T 0.64445 ABS# (0-10) 05/04/24 09:30 Total Protein 7.4 g/dL (6.6-8.7) 05/04/24 07:38 Albumin 4.8 g/dL (3.5-5.2) 05/04/24 07:38 Globulin 2.6 g/dL (1.3-4.6) 05/04/24 07:38 Lipase 31 U/L (13-60) 05/04/24 07:38 All radiology interpretation(s) finalized by discharge Discharge Plan Discharge Patient Disposition: Home Clinical Impression: Atypical chest pain, GERD (gastroesophageal reflux disease), Abdominal pain Condition: Stable Prescriptions: New aspirin 81 mg tablet,delayed release (DR/EC) 81 mg PO DAILY Qty: 30 0RF No Action acetaminophen [Tylenol] 325 mg tablet 325 mg PO QID PRN (Reason: Pain) Eliquis 5 mg tablet 5 mg PO BID Qty: 180 1RF amlodipine 5 mg tablet 5 mg PO DAILY Qty: 90 1RF pantoprazole [Protonix] 40 mg tablet,delayed release (DR/EC) 40 mg PO BID 42 Days Qty: 84 1RF ezetimibe [Zetia] 10 mg tablet 10 mg PO DAILY Qty: 90 0RF metoprolol tartrate 50 mg tablet 50 mg PO BID allopurinol 300 mg tablet 300 mg PO DAILY colchicine 0.6 mg Tablet 0.6 mg PO DAILY PRN (Reason: gout) garlic 400 mg Tablet 400 mg PO DAILY Discharge Orders: Discharge ED (Routine); Ordered 05/04/24 Ordered By: Michael Sepulveda Referrals: Francoise Shelby FNP [Primary Care Provider] - Discharge Diet: Usual diet Discharge Activity: Resume usual activity Patient Instructions: Abdominal Pain (ED), Opioid Safety, Pain Management Activity Restrictions/Additional Instructions: Thank you for choosing [facility] for your healthcare needs today. It is very important that you follow up as instructed or that you return to the Emergency Department should you have concerns or if your condition changes or worsens in any way. You were seen in the emergency room with complaint of chest and abdominal discomfort that she has had for over a month. We reviewed the previous workup you had as an outpatient repeated some lab work and also did EKGs and cardiac enzymes. There is no sign of acute coronary syndrome pneumonia or pneumothorax no sign of acute intra-abdominal pathology. Do recommend that you take a baby aspirin daily continue your other medications and follow-up with your primary care doctor within the week. Case management make arrangements for you to have an outpatient stress test. Print Language: Jordanian Coding Level of Care Code ED Swamper for Usha Mitchell
[2024-05-04] MEDS: aspirin 81 mg Chew Tablet 324 MG PO (08:08)
[2024-05-04 08:22] LABS: Alanine Aminotransferase 50 U/L (0-41); Albumin Level 4.8 g/dL (3.5-5.2); Alkaline Phosphatase 61 U/L (40-130); Anion Gap 18.8 (5-19); Aspartate Amino Transferase 28 U/L (0-40); Blood Urea Nitrogen 16 mg/dL (8-23); Calcium 10.4 mg/dL (8.5-10.5); Carbon Dioxide 26 mmol/L (22-29); Chloride 100 mmol/L (98-107); Globulin 2.6 g/dL (1.3-4.6); Glomerular Filtration Rate 56.3 mL/min (90-130); Glucose 95 mg/dL (65-115); Osmolality Calculated 291 mOsm/kg (285-295); Potassium 4.8 mmol/L (3.5-5.1); Sodium 140 mmol/L (136-145); Total Bilirubin 0.5 mg/dL (0.15-1.2); Total Protein 7.4 g/dL (6.6-8.7)
[2024-05-04 08:23] LABS: Creatinine Clr Calc Pharmacy 73.8455; Troponin(5th) Baseline < 6 ng/L (0-15)
--- NOTE | 2024-05-04 08:26 | PC.PHAR ---
Pt states he is out of AirXpandersix and would like to have more. Pt also states takes colchicine 0.6mg prn-unable to find an order.
[2024-05-04 08:29] LABS: Lipase 31 U/L (13-60)
[2024-05-04 09:01] LABS: D Dimer 0.41 ug/mLFEU (0-0.59)
--- NOTE | 2024-05-04 09:36 | ECG_ITS ---
[facility] Pat Name: Emmy Correia Department: Room: Gender: Male Well Logger: : 1965 Requested By: Michael Covington Order Number: [id number] Kian MD: Silvano Peña M.D. Measurements Intervals Ulysses Rate: 55 P: 5 NJ: 163 QRS: 24 QRSD: 100 T: 5 QT: 401 QTc: 387 Interpretive Statements SINUS BRADYCARDIA Compared to ECG 05/04/2024 07:19:26 Sinus rhythm no longer present Electronically Signed On 05-04-2024 19:26:58 NURSE EDUCATOR by Silvano Peña M.D. [email or web address]
[2024-05-04 10:00] LABS: Troponin 5 2HR Delta 0.00001 ABS# (0-10)
--- NOTE | 2024-05-06 14:08 | DCPLANNER ---
faxed outpatient lexiscan order to scheduling
== END 2024-05-04 10:34 | disposition home or self-care (01) ==
PROVIDERS: Emergency Provider Family Medicine; PCP Nurse Practitioner Family
DX: R07.89 Other chest pain (principal); K21.9 Gastro-esophageal reflux disease without esophagitis; R10.9 Unspecified abdominal pain; Z79.01 Long term (current) use of anticoagulants; I10 Essential (primary) hypertension; E78.2 Mixed hyperlipidemia
CPT/HCPCS: 36415; 71045; 80053; 83690; 84484; 85025; 85378; 93005; 99285

== ENCOUNTER 2024-05-16 08:25 | Outpatient (CLI) | payer MEDICARE, MEDICAID, SELFPAY ==
--- NOTE | 2024-05-16 | ECG_ITS ---
[facility] Test Date: 2024-05-16 Pat Name: Emmy Correia Department: Room: Gender: Male Excel Expert: : 1965 Requested By: Jeancarlos Arce Order Number: [id number] Langston MD: Luigi Harmon M.D. Interpretive Statements Lung unchanged pre/post procedure; Intraprocedure shortess of breath; Symptoms resoled by discharge PROCEDURE: At the baseline, the EKG revealed normal sinus rhythm with a poor R wave progression. Normal ST Ts. The baseline heart was 61 bpm with a blood pressue of 144/96 mm of Hg Lexiscan was infused over a period of 20 seconds. A total of 0.4 milligrams of Lexiscan was infused. The stress phase was continued for a total of 5 minutes. Heart rate at the end of the stress phase was 76 bpm with a blood pressure 160/89 mm of Hg. The EKG at the peak infusion revealed no significant changes. Sestamibi was injected 20 seconds after the Lexiscan infusion. Heart rate at the end of the recovery phase was 74 bpm with a blood pressure of 154/93 mm of Hg. CONCLUSION: 1. No significant EKG changes with the LexiScan infusion 2. No LexiScan induced chest pain or cardiac arrhythmia 3. Normal blood pressure and heart rate response 4. Sestamibi/sestamibi perfusion scan pending; see separate report. Electronically Signed On 05-17-2024 15:58:14 CDT by Luigi Harmon M.D. [email or web address]
[2024-05-16 08:40] VITALS: BMI 38.0
--- NOTE | 2024-05-16 09:00 | NMCV_ITS ---
NM lorene perf SPECT r/s* [id number] Emmy Correia Age: 58 Gender: M : 1965 Exam Date: 05/16/2024 09:50 Ordering Phys: Michael Sepulveda DO Technologist: BRAD Altman Exam Location: [facility] Indications: cp STRESS TEST [facility] IMAGE PROTOCOL Rest/Stress 1 Lexiscan Day Radiopharmaceutical Dose (mCi) Administration Site Administered by Rest: Tc-99m 10.2 IV Carri Chew, GRINDING MILL OPERATOR Sestamibi Stress:Tc-99m 33 IV Carri Alfredgle, GRINDING MILL OPERATOR Sestamibi Rest: 16-May-2024 60 Discovery 630 Stress: 16-May-2024 30 Discovery 630 0.4mg Lexiscan. Images obtained in supine and prone position. SPECT RESULTS Technical Quality: Good Raw Data Analysis: Normal Image Corrections: No attenuation or motion correction applied Summed Stress Score: 0 Summed Rest Score: 5 Summed Difference Score: 0 PERFUSION FINDINGS Fairly uniform tracer uptake with no significant perfusion abnormalities FUNCTIONAL RESULTS (calculated via Gated SPECT) Stress Image LV EF (%): 67 Stress EDV (mL):105 TID: 0.88 Stress ESV (mL):35 FUNCTIONAL FINDINGS: Segmental wall motion analysis revealing no gross wall motion abnormalities IMPRESSIONS 1. Myocardial perfusion imaging revealing uniform myocardial tracer uptake with no significant Perfusion abnormalities. 2. Normal LV ejection fraction of 67%. 3. LV wall motion analysis revealing no gross wall motion abnormalities. 4. Normal LV volume Low probability for coronary ischemia, based on the above findings Dr Luigi Harmon MD FACC (Electronically Signed) Final Date: 16 May 2024 17:18 S
[2024-05-16] MEDS: regadenoson 0.4 Mg/5 ml Syringe IVP (10:14)
[2024-05-16 10:40] VITALS: BP 154/93; PULSE 71
== END 2024-05-16 08:26 | disposition home or self-care (01) ==
PROVIDERS: PCP Nurse Practitioner Family; Visit Provider Family Medicine
DX: R07.9 Chest pain, unspecified (principal)
CPT/HCPCS: 36415; 78452; 93017; 96374; A9500; J2785

== ENCOUNTER → 2024-07-29 10:20 | Outpatient (BNVA) | payer MEDICARE, MEDICAID, SELFPAY | PROVIDERS: PCP Nurse Practitioner Family; Visit Provider Nurse Practitioner Family | DX: I10 Essential (primary) hypertension (principal); M1A.09X0 Idiopathic chronic gout, multiple sites, without tophus (tophi) | CPT/HCPCS: 80053; 80061; 84550; 85025 ==

== ENCOUNTER → 2025-01-27 09:11 | Outpatient (BNVA) | payer MEDICARE, MEDICAID, SELFPAY | PROVIDERS: PCP Nurse Practitioner Family; Visit Provider Nurse Practitioner Family | DX: Z12.5 Encounter for screening for malignant neoplasm of prostate (principal); I10 Essential (primary) hypertension | CPT/HCPCS: 80053; 80061; 82607; 84443; 84550; 85025; G0103 ==